=== PATIENT | female | born 1955 | race Caucasian/White ===

== ENCOUNTER 2021-07-06 13:28 | Emergency (ER) | payer OTHER ==
--- NOTE | 2021-07-06 17:26 | ER ---
Nurse's Notes [facility] Name: Sanjana Villar Age: 65 yrs Sex: Female : 1955 Arrival Date: 07/06/2021 Time: 13:31 Bed DX4 Private MD: Diagnosis: Cellulitis of right upper limb Presentation: 07/06 14:48 Chief complaint: Patient states: she has a bite on her right upper arm that she would ap3 like to be checked out, as she is diabetic and from out of town. Coronavirus screen: At this time, the client does not indicate any symptoms associated with coronavirus-19. Ebola Screen: No symptoms or risks identified at this time. Initial Sepsis Screen: Does the patient meet any 2 criteria? No. Patient's initial sepsis screen is negative. Does the patient have a suspected source of infection? No. Patient's initial sepsis screen is negative. Risk Assessment: Do you want to hurt yourself or someone else? Patient reports no desire to harm self or others. Onset of symptoms was July 04, 2021. 14:48 Method Of Arrival: Ambulatory ap3 14:48 Acuity: OLIVER 4 ap3 Triage Assessment: 14:52 Bite description: bite sustained to right bicep is from insect was sustained 2 days ap3 ago. by insect, animal information: vaccination(s) is not applicable. General: Appears in no apparent distress. Behavior is calm, cooperative, appropriate for age. Pain: Complains of pain in right bicep Pain currently is 5 out of 10 on a pain scale. Pain began 2-3 days ago. Neuro: Level of Consciousness is awake, alert, obeys commands, Oriented to person, place, time, situation, Appropriate for age Gait is steady, Speech is normal. Cardiovascular: Patient's skin is warm and dry. Respiratory: Airway is patent Respiratory effort is even, unlabored, Respiratory pattern is regular, symmetrical. Derm: insect bite on right upper arm. Historical: - Allergies: 14:50 No Known Allergies; ap3 - Home Meds: 14:50 Metformin Oral [Active]; omeprazole 40 mg Oral cpDR [Active]; atorvastatin 10 mg oral ap3 tab [Active]; - PMHx: 14:50 Diabetes mellitus; Hypercholesterolemia; ap3 - Immunization history:: Client reports receiving the 2nd dose of the Covid vaccine, Flu vaccine is up to date. - Social history:: Smoking status: Patient denies any tobacco usage or history of. - Family history:: not pertinent. Screenin:53 Abuse screen: Denies threats or abuse. Nutritional screening: No deficits noted. ap3 Tuberculosis screening: No symptoms or risk factors identified. 17:20 Fall Risk None identified. ss Assessment: 14:53 Derm: Skin is intact, insect bite on right upper arm Skin is pink, warm \T\ dry. ap3 17:20 General: Appears in no apparent distress. comfortable, Behavior is calm, cooperative. ss Pain: Denies pain. Neuro: Level of Consciousness is awake, alert, obeys commands, Oriented to person, place, time, situation. Cardiovascular: Capillary refill < 3 seconds is brisk in bilateral fingers. Respiratory: Airway is patent is compromised Trachea midline Respiratory effort is even, unlabored, Respiratory pattern is regular, symmetrical. Derm: quarter sized area of redness noted to R upper arm. Vital Signs: 14:48 Pulse 79; Resp 16; Temp 97.9; Pulse Ox 100% ; Weight 58.51 kg; Height 5 ft. 2 in. ap3 (157.48 cm); 14:51 BP 107 / 72; ap3 14:48 Body Mass Index 23.59 (58.51 kg, 157.48 cm) ap3 ED Course: 13:31 Patient arrived in ED. am2 14:50 Triage completed. ap3 14:53 Arm band placed on left wrist. ap3 17:20 Gina Kearney MD is Attending Physician. ma2 17:20 Patient has correct armband on for positive identification. Bed in low position. Call ss light in reach. 17:20 No provider procedures requiring assistance completed. ss 17:35 Ramila Thomson, CRISTINE is Primary Nurse. ss 17:48 Patient did not have IV access during this emergency room visit. ss Administered Medications: No medications were administered Outcome: 17:25 Discharge ordered by . ma2 17:48 Discharged to home ambulatory. ss 17:48 Condition: good 17:48 Discharge instructions given to patient, Instructed on discharge instructions, follow up and referral plans. medication usage, Demonstrated understanding of instructions, follow-up care, Prescriptions given X 1. 17:49 Patient left the ED. Signatures: Ramila Thomson, CRISTINE RN Nilsa Ladd am2 Gina Kearney MD MD ma2 Nilsa Tanner, CRISTINE RN ap3
--- NOTE | 2021-07-06 17:26 | EDPHYS ---
Physician Documentation [facility] Name: Sanjana Villar Age: 65 yrs Sex: Female : 1955 Arrival Date: 07/06/2021 Time: 13:31 Bed DX4 Private MD: ED Physician Gina Kearney HPI: 07/06 17:24 This 65 yrs old Female presents to ER via Ambulatory with complaints of Insect Bite - ma2 right arm. 17:24 For 1 day, constant mild, has had similar bites in the past.. ma2 Historical: - Allergies: 14:50 No Known Allergies; ap3 - Home Meds: 14:50 Metformin Oral [Active]; omeprazole 40 mg Oral cpDR [Active]; atorvastatin 10 mg oral ap3 tab [Active]; - PMHx: 14:50 Diabetes mellitus; Hypercholesterolemia; ap3 - Immunization history:: Client reports receiving the 2nd dose of the Covid vaccine, Flu vaccine is up to date. - Social history:: Smoking status: Patient denies any tobacco usage or history of. - Family history:: not pertinent. ROS: 17:24 Constitutional: Negative for fever, chills, and weight loss. ma2 17:24 All other systems are negative. Exam: 17:24 Constitutional: This is a well developed, well nourished patient who is awake, alert, ma2 and in no acute distress. Chest/axilla: Normal chest wall appearance and motion. Nontender with no deformity. No lesions are appreciated. Cardiovascular: Regular rate and rhythm with a normal S1 and S2. No gallops, murmurs, or rubs. Normal PMI, no JVD. No pulse deficits. Respiratory: Lungs have equal breath sounds bilaterally, clear to auscultation and percussion. No rales, rhonchi or wheezes noted. No increased work of breathing, no retractions or nasal flaring. Abdomen/GI: Soft, non-tender, with normal bowel sounds. No distension or tympany. No guarding or rebound. No evidence of tenderness throughout. Skin: Warm, dry with normal turgor. Normal color with no rashes, no lesions, and no evidence of cellulitis. MS/ Extremity: Small area of redness on lateral right upper arm, measures 1 x 1 inch, no swelling fluctuance or crepitation, mildly tender, pulses equal, no cyanosis. Neurovascular intact. Full, normal range of motion. Neuro: Awake and alert, GCS 15, oriented to person, place, time, and situation. Cranial nerves II-XII grossly intact. Motor strength 5/5 in all extremities. Sensory grossly intact. Cerebellar exam normal. Normal gait. Vital Signs: 14:48 Pulse 79; Resp 16; Temp 97.9; Pulse Ox 100% ; Weight 58.51 kg; Height 5 ft. 2 in. ap3 (157.48 cm); 14:51 BP 107 / 72; ap3 14:48 Body Mass Index 23.59 (58.51 kg, 157.48 cm) ap3 MDM: 17:20 Patient medically screened. ma2 17:24 Differential diagnosis: abrasion, tendonitis, Contact dermatitis versus cellulitis. ma2 Data reviewed: vital signs, nurses notes. Counseling: I had a detailed discussion with the patient and/or guardian regarding: the historical points, exam findings, and any diagnostic results supporting the discharge/admit diagnosis, the presence of at least one elevated blood pressure reading (>120/80) during this emergency department visit, the need for outpatient follow up. Response to treatment: the patient's symptoms have markedly improved after treatment. Administered Medications: No medications were administered Disposition Summary: 07/06/21 17:25 Discharge Ordered Location: Home ma2 Condition: Stable ma2 Diagnosis - Cellulitis of right upper limb ma2 Followup: ma2 - With: Private Physician - When: Tomorrow - Reason: If symptoms return, Continuance of care Discharge Instructions: - Discharge Summary Sheet ma2 - Cellulitis, Adult ma2 Forms: - Medication Reconciliation Form ma2 - Thank You Letter ma2 - Antibiotic Education ma2 - Prescription Opioid Use ma2 Prescriptions: - clindamycin HCl 300 mg Oral capsule - take 1 capsule by ORAL route every 6 hours; 28 capsule; Refills: 0, Product ma2 Selection Permitted Signatures: Gina Kearney MD MD ma2 Nilsa Tanner RN RN ap3
[2021-07-06 19:24] VITALS: TEMP 97.9; O2SAT 100
[2021-07-06 19:26] VITALS: BP 107/72
== END 2021-07-06 17:49 | disposition home or self-care (01) ==
LOC: ER 13:28
DX: L03.113 Cellulitis of right upper limb (principal); E11.9 Type 2 diabetes mellitus without complications; E78.00 Pure hypercholesterolemia, unspecified
CPT/HCPCS: 99282